=== PATIENT | female | born 1950 | race African-American/Black ===

== ENCOUNTER → 2017-06-12 | Outpatient (CLI) | payer MEDICARE ==
[~2017-06-12] MED LIST: ALBU2.5V13 IH; DOBUTAMINE 250MG PREMIX 250 ML IV ONE; MOME13HF2 IH; OMEP20CA4 PO; SODIUM CHLORIDE 0.9% 250 ML IV NR
== END | disposition home or self-care (01) ==
LOC: CARD 10:10
PROVIDERS: ATTEND Specialist
DX: J44.9 Chronic obstructive pulmonary disease, unspecified (principal); I20.1 Angina pectoris with documented spasm
CPT/HCPCS: 93017; J1250